=== PATIENT | female | born 1950 | race Caucasian/White ===

== ENCOUNTER 2021-05-13 06:12 | Inpatient (IN) | payer MEDICARE, MEDICAID ==
[2021-05-08 09:41] LABS: Urine Bacteria NONE SEEN /hpf (None Seen); Urine Blood Negative /uL (Negative); Urine Mucus FEW (None Seen); Urine Specific Gravity 1.031 (1.001-1.035); Urine WBC 4 /hpf (0 - 5)
[2021-05-08 09:43] LABS: Eosinophils # (auto) 0.4 10 ^3/uL (0-0.8); Hemoglobin 14.8 g/dL (12.2-16.2); Lymphocytes # (auto) 1.9 10 ^3/uL (0.4-5.4); Mean Corpuscular Hemoglobin 34.3 pg (28.0-32.0); Monocytes # (auto) 0.9 10 ^3/uL (0-1.3)
[2021-05-08 09:45] LABS: Basophils # (auto) 0.1 10 ^3/uL (0-0.2); Basophils % (auto) 1.1 % (0.0-2.0); Hematocrit 43.1 % (36.0-46.0); Lymphocytes % (auto) 21.4 % (10.0-50.0); Mean Corpuscular Hgb Conc. 34.4 g/dL (32.0-36.0); Mean Corpuscular Volume 99.8 fL (80.0-100.0); Neutrophils # (auto) 5.8 10 ^3/uL (1.6-8.6); Neutrophils % (auto) 63.5 % (37.0-80.0); Nucleated Red Blood Cells % 0.1 %; Red Blood Cells 4.32 10^6/uL (4.0-5.20); Red Cell Distribution Width 14.5 % (11.8-14.3); White Blood Cell 9.1 10^3/uL (4.4-10.8)
[2021-05-08 10:10] LABS: Albumin 3.8 g/dL (3.4-5.0); Calcium 8.9 mg/dL (8.5-10.1); Potassium 4.2 mmol/L (3.5-5.1)
[2021-05-08 10:13] LABS: BUN/Creatinine Ratio 27.3; Bilirubin, Total 0.5 mg/dL (0.2-1.0); Total Protein 7.6 g/dL (6.4-8.2)
[~2021-05-13] VITALS: Ht 152.4 cm; Wt 108.0 kg
[~2021-05-13 06:12] MED LIST: ALBUAER3 IN; ATOR10TA PO; CHOL20007 PO; DICL1GEL72 TOP; DULO60CA PO; METH2.5T PO; MIRA50TA PO; TRAM50TA2 PO
[2021-05-13] MEDS: BUPIVACAINE W/ EPINEPH 0.25% INJ 50ML MDV ONE ×2 (06:51→10:00)
[2021-05-13] MEDS: KETOROLAC TROMETH 30 MG/ML 1ML VIAL ONE ×2 (06:55→10:00)
[2021-05-13] MEDS ORDERED: VANCOMYCIN HCL 1000 MG VL ONE (06:56)
[2021-05-13] MEDS ORDERED: TRANEXAMIC ACID 20 ML ONE (07:01)
[2021-05-13] MEDS ORDERED: ceFAZolin 1GM/50ML 100 ML IV ONE (07:18)
[2021-05-13] MEDS ORDERED: MIDAZOLAM HCL 2MG/2ML 2ml VIAL (1mg/ml) ONE (07:31)
[2021-05-13] MEDS ORDERED: fentaNYL CITRATE 5 ML ONE (07:31)
[2021-05-13] MEDS ORDERED: fentaNYL CITRATE 100 MCG/2 ML VL ONE (07:31)
[2021-05-13] MEDS ORDERED: MEPERIDINE HCL (50 MG/ML) 1 ML VIAL ONE (07:32)
[2021-05-13] MEDS ORDERED: SUCCINYLCHOLINE CHLORIDE 20 MG/ML 10ML VIAL IV ONE (07:32)
[2021-05-13] MEDS ORDERED: DexAMETHasone SOD PHOS 10MG/1ML VIAL INJ ONE (07:52)
[2021-05-13] MEDS ORDERED: PROPOFOL 10 MG/ML 20 ML IV ONE (07:52)
[2021-05-13] MEDS ORDERED: MIDAZOLAM HCL 2MG/2ML 2ml VIAL (1mg/ml) IV PRN (08:30)
[2021-05-13] MEDS ORDERED: HYDROmorphone HCL 2 MG/ML VL IV PRN (08:30)
[2021-05-13] MEDS ORDERED: ePHEDrine SULFATE 50 MG/ML AMP IV PRN (08:30)
[2021-05-13] MEDS ORDERED: ONDANSETRON HCL 4 MG/2 ML VIAL IV PRN ×2 (08:30→10:45)
[2021-05-13] MEDS ORDERED: fentaNYL CITRATE 100 MCG/2 ML VL IV PRN (08:30)
[2021-05-13] MEDS ORDERED: hydrALAZINE HCL 20 MG/ML VL IV PRN (08:30)
[2021-05-13] MEDS ORDERED: LABETALOL HCL 5 MG/ML 4ML SYRINGE IV PRN (08:30)
[2021-05-13] MEDS ORDERED: MORPHINE SULFATE 4 MG/ML SYR/VIAL IV PRN (08:30)
[2021-05-13] MEDS ORDERED: MORPHINE SULF PF 2 MG/2 ML SYRG ONE (08:42)
[2021-05-13] MEDS ORDERED: ONDANSETRON HCL 4 MG/2 ML VIAL ONE (09:41)
[2021-05-13] MEDS ORDERED: BUPIVACAINE 0.5% P/F INJ 10 ML VIAL ONE (10:20)
[2021-05-13] MEDS ORDERED: LIDOCAINE 1% (LOCAL ANESTH.) PF 5ml SDV ONE (10:21)
[2021-05-13] MEDS ORDERED: NITROGLYCERIN 0.4 MG SL TAB SL PRN (10:45)
[2021-05-13] MEDS ORDERED: ACETAMINOPHEN 325 MG TAB PO PRN (10:45)
[2021-05-13] MEDS: LACTATED RINGER'S 1,000 ML IV SCH ×2 (10:45→23:00)
[2021-05-13] MEDS ORDERED: MORPHINE SULFATE INJECTION 2 MG/ML SYRG IV PRN (10:45)
[2021-05-13 13:10] LABS: BUN/Creatinine Ratio 26.6; Calcium 8.3 mg/dL (8.5-10.1); Potassium 4.5 mmol/L (3.5-5.1)
[2021-05-13] MEDS: ceFAZolin 1GM/50ML 50 ML IV SCH ×2 (16:00→22:52)
[2021-05-13 17:00] VITALS: BP 161/100
[2021-05-13] MEDS: HYDROmorphone HCL 2 MG/ML VL IV PRN ×2 (17:47→22:45)
[2021-05-13] MEDS: HYDROcodone-ACET 10/325MG TAB PO PRN (18:27)
[2021-05-13] MEDS ORDERED: ALBUTEROL SULF HFA 90MCG INH 200DOSE IN SCH ×2 (22:00)
[2021-05-13] MEDS ORDERED: ATORVASTATIN 20 MG TAB PO SCH (22:00)
[2021-05-13 22:25] VITALS: BP 124/81
[2021-05-13] MEDS: DOCUSATE SOD 100 MG CAP PO SCH (23:00)
[2021-05-14] MEDS: ALBUTEROL SULF 2.5 MG/0.5ML(0.5%) NEB SOLN NEB SCH ×2 (00:45→07:14)
[2021-05-14] MEDS: HYDROmorphone HCL 2 MG/ML VL IV PRN (05:13)
[2021-05-14] MEDS: ceFAZolin 1GM/50ML 50 ML IV SCH ×2 (05:15→11:07)
[2021-05-14 05:29] VITALS: BP 135/88
[2021-05-14 05:41] LABS: Hematocrit 35.7 % (36.0-46.0)
[2021-05-14 05:57] LABS: Potassium 4.9 mmol/L (3.5-5.1)
[2021-05-14 06:08] LABS: Albumin 3.2 g/dL (3.4-5.0); BUN/Creatinine Ratio 35.7; Bilirubin, Total 0.3 mg/dL (0.2-1.0); Calcium 8.9 mg/dL (8.5-10.1); Total Protein 6.2 g/dL (6.4-8.2)
[2021-05-14] MEDS: LACTATED RINGER'S 1,000 ML IV SCH (06:45)
[2021-05-14 08:00] VITALS: BP 118/94
[2021-05-14] MEDS: DOCUSATE SOD 100 MG CAP PO SCH (09:49)
[2021-05-14] MEDS: HYDROcodone-ACET 10/325MG TAB PO PRN (09:52)
[2021-05-14] MEDS ORDERED: PATIENTS OWN MEDICATION (Atorvastatin Calcium (Lipitor) 10 MG) PO SCH (10:00)
== END 2021-05-14 12:55 | disposition home or self-care (01) | DRG 483 ==
LOC: SUR 06:12 → OVERFLOW 10:44 → WEST WING 16:02
PROVIDERS: ADMIT Orthopaedic Surgery Sports Medicine; ATTEND Orthopaedic Surgery Sports Medicine
PROC: 0RRK00Z Replacement of Left Shoulder Joint with Reverse Ball and Socket Synthetic Substitute, Open Approach (ICD-10-PCS; principal; 2021-05-13 07:42)
DX: M19.012 Primary osteoarthritis, left shoulder (principal); M06.9 Rheumatoid arthritis, unspecified; G89.29 Other chronic pain; Z91.040 Latex allergy status
CPT/HCPCS: 36415; 73020; 80048; 80053; 81001; 85014; 85018; 85025; 86850; 86900; 86901; 94640; 97163; G0378; J0330; J0690; J1100; J1885; J2250; J2405; J2704; J3490